=== PATIENT | female | born 1980 | race Two or more races ===

== ENCOUNTER → 2018-12-20 | Outpatient (CLI) | payer OTHER ==
[~2018-12-20] VITALS: Ht 170.2 cm; Wt 80.7 kg
[~2018-12-20] MED LIST: FOLIC ACID1 MG; OMEGA 3 1,0001 EACH; PRENATABS RX T1 EACH
== END | disposition home or self-care (01) ==
LOC: ER 02:04 → OBS/DEL 02:07 → EDSTATUS 15:43
DX: O76 Abnormality in fetal heart rate and rhythm complicating labor and delivery (principal); Z34.83 Encounter for supervision of other normal pregnancy, third trimester

== ENCOUNTER 2019-02-01 14:50 | Outpatient (CLI) | payer OTHER | END 2019-02-01 16:26 | disposition home or self-care (01) | LOC: NST 14:50 | DX: Z34.82 Encounter for supervision of other normal pregnancy, second trimester (principal) ==

== ENCOUNTER 2019-02-24 14:14 | Outpatient (CLI) | payer OTHER | END 2019-02-24 15:48 | disposition home or self-care (01) | LOC: NST 14:14 | DX: Z34.83 Encounter for supervision of other normal pregnancy, third trimester (principal) ==

== ENCOUNTER 2019-03-21 02:55 | Inpatient (IN) | payer OTHER ==
[~2019-03-21] VITALS: Ht 170.2 cm; Wt 83.0 kg
== END 2019-03-23 13:41 | disposition home or self-care (01) | DRG 833 ==
LOC: LDR 02:55 → OB/GYN 10:00
PROVIDERS: ADMIT Obstetrics & Gynecology Maternal & Fetal Medicine
PROC: 4A1HXCZ Monitoring of Products of Conception, Cardiac Rate, External Approach (ICD-10-PCS; principal; 2019-03-21)
DX: O60.03 Preterm labor without delivery, third trimester (principal); Z34.83 Encounter for supervision of other normal pregnancy, third trimester

== ENCOUNTER 2019-03-27 13:27 | Outpatient (CLI) | payer OTHER | END 2019-03-27 14:32 | disposition home or self-care (01) | LOC: NST 13:27 | DX: Z34.83 Encounter for supervision of other normal pregnancy, third trimester (principal) ==

== ENCOUNTER 2019-04-04 13:23 | Outpatient (CLI) | payer OTHER | END 2019-04-04 14:37 | disposition home or self-care (01) | LOC: NST 13:23 | DX: Z34.83 Encounter for supervision of other normal pregnancy, third trimester (principal) ==

== ENCOUNTER 2019-04-04 16:04 | Inpatient (IN) | payer OTHER ==
[~2019-04-04] VITALS: Ht 170.2 cm; Wt 84.4 kg
[2019-04-08] MEDS ORDERED: NIFE60TA3 PO (02:35)
[2019-05-08] MEDS ORDERED: FOLIC ACID1 MG PO (03:28)
== END 2019-05-10 13:54 | DRG 807 ==
LOC: OB/GYN 04-11 15:30 → LDR 05-08 01:59 → SURG-SUITE 05-08 01:59 → OB/GYN 05-12 15:30
PROVIDERS: ADMIT Obstetrics & Gynecology Maternal & Fetal Medicine
PROC: 10E0XZZ Delivery of Products of Conception, External Approach (ICD-10-PCS; principal; 2019-05-08)
PROC: 0W8NXZZ Division of Female Perineum, External Approach (ICD-10-PCS; 2019-05-08)
PROC: 4A1HXCZ Monitoring of Products of Conception, Cardiac Rate, External Approach (ICD-10-PCS; 2019-05-08)
PROC: 4A033R1 Measurement of Arterial Saturation, Peripheral, Percutaneous Approach (ICD-10-PCS; 2019-05-08)
DX: O80 Encounter for full-term uncomplicated delivery (principal); Z37.0 Single live birth; Z3A.39 39 weeks gestation of pregnancy

== ENCOUNTER 2019-04-08 02:19 | Outpatient (CLI) | payer OTHER ==
[2019-04-08] MEDS ORDERED: NIFE60TA3 PO (02:35)
== END 2019-04-08 12:06 | disposition home or self-care (01) ==
LOC: OBS/DEL 02:19
DX: O76 Abnormality in fetal heart rate and rhythm complicating labor and delivery (principal); Z34.83 Encounter for supervision of other normal pregnancy, third trimester

== ENCOUNTER 2019-04-19 10:42 | Outpatient (CLI) | payer OTHER ==
[~2019-04-19 10:42] MED LIST changes: +NIFE60TA3 PO
== END 2019-04-19 11:46 | disposition home or self-care (01) ==
LOC: NST 10:42
DX: O26.893 Other specified pregnancy related conditions, third trimester (principal); R10.2 Pelvic and perineal pain

== ENCOUNTER 2019-05-04 14:43 | Outpatient (CLI) | payer OTHER | END 2019-05-04 15:25 | disposition home or self-care (01) | LOC: NST 14:43 | DX: Z34.83 Encounter for supervision of other normal pregnancy, third trimester (principal) ==

== ENCOUNTER 2020-11-05 12:30 | Inpatient (IN) | payer OTHER ==
[~2020-11-05] VITALS: Ht 170.2 cm; Wt 79.8 kg
[~2020-11-05 12:30] MED LIST changes: +FOLIC ACID1 MG PO
[2020-11-29] MEDS ORDERED: LORAZEPAM0.5 MG (09:03)
[2020-11-29] MEDS ORDERED: HYDROXYZINE PAM50 MG (09:03)
== END 2020-11-30 16:23 | disposition home or self-care (01) | DRG 807 ==
LOC: LDR 11-28 09:26 → SURG-SUITE 11-28 17:34 → OB/GYN 11-29 12:30 → SURG-SUITE 11-30 16:23
PROVIDERS: ADMIT Obstetrics & Gynecology Maternal & Fetal Medicine; ATTEND Obstetrics & Gynecology Maternal & Fetal Medicine
PROC: 10E0XZZ Delivery of Products of Conception, External Approach (ICD-10-PCS; principal; 2020-11-28)
PROC: 10907ZC Drainage of Amniotic Fluid, Therapeutic from Products of Conception, Via Natural or Artificial Opening (ICD-10-PCS; 2020-11-28)
PROC: 4A1HXFZ Monitoring of Products of Conception, Cardiac Rhythm, External Approach (ICD-10-PCS; 2020-11-28)
DX: O80 Encounter for full-term uncomplicated delivery (principal); Z37.0 Single live birth; Z3A.39 39 weeks gestation of pregnancy; Z20.822 Contact with and (suspected) exposure to COVID-19

== ENCOUNTER 2020-11-25 14:30 | Outpatient (CLI) | payer OTHER | END 2020-11-25 15:00 | disposition home or self-care (01) | LOC: NST 14:30 | PROVIDERS: ATTEND Obstetrics & Gynecology Maternal & Fetal Medicine | DX: Z34.83 Encounter for supervision of other normal pregnancy, third trimester (principal) ==